=== PATIENT | male | born 1950 | race Caucasian/White ===

== ENCOUNTER 2020-05-03 00:57 | Inpatient (IN) ==
[2020-05-03 01:39] LABS: VBG HCO3 26 mEq/L (21-27); VBG PCO2 47 mmHg (41-51); VBG PH 7.36 pH Units (7.32-7.42); VBG PO2 43 mmHg (25-50)
[2020-05-03 01:45] LABS: Bacteria,Urine Few per hpf (None-Few); Bilirubin,Urine Negative (Negative); Blood,Urine Large (Negative); Clarity,Urine Clear (Clear); Color,Urine Yellow (Yellow); Glucose,Urine (UA) Normal (Normal); Ketones,Urine 20 mg/dL (Negative); Leukocyte Esterase,Urine Negative (Negative); Nitrite,Urine Negative (Negative); PH,Urine 6.5 pH Units (5.0-8.0); Protein,Urine 200 mg/dL (Neg-Trace); RBC,Urine TNTC per hpf (0-3); Specific Gravity,Urine 1.028 (1.010-1.025); Squamous Epithelial Cell,Urine Few per hpf (None-Few); WBC,Urine 0-3 per hpf (0-3)
[2020-05-03 01:45] LABS: Basophils % 0.2 %; Immature Granulocytes % 0.7 % (0-4)
[2020-05-03 01:46] LABS: Mucus,Urine Few per lpf (None-Few)
[2020-05-03 01:46] LABS: INR 2.3; Prothrombin Time 25.6 Seconds (9.4-12.1)
[2020-05-03 01:48] LABS: Hematocrit 42.5 % (37.5-50.1); Hemoglobin 13.4 g/dL (12.9-16.9); Immature Platelets 3.6 % (1.1-6.1); Lymphocytes # 0.7 K/mcL (0.6-4.6); Lymphocytes % 15.9 %; Mean Corpuscular HGB Conc 31.5 g/dL (31.6-35.5); Mean Corpuscular Hemoglobin 28.7 pg (28.0-33.3); Monocytes # 0.3 K/mcL (0.0-1.3); Monocytes % 5.9 %; Neutrophils # 3.3 K/mcL (1.6-8.9); Platelet Count 118 K/mcL (140-400); Red Blood Count 4.67 M/mcL (4.19-5.50); Red Cell Distribution Width 14.8 % (11.5-14.5); Segmented Neutrophils % 77.3 %; White Blood Count 4.2 K/mcL (4.3-11.1)
[2020-05-03 01:49] LABS: Activated Partial Thrombo Time 37.4 Seconds (26.0-36.0)
[2020-05-03 02:13] LABS: Platelet Estimate Slight Decrease (Normal)
[2020-05-03 02:22] LABS: Alanine Aminotransferase 10 Units/L (7-52); Albumin 3.6 g/dL (3.5-5.7); Alkaline Phosphatase 68 Units/L (34-104); Aspartate Amino Transferase 33 Units/L (13-39); BUN/Creatinine Ratio 18 (6-26); Bilirubin,Direct 0.2 mg/dL (0.0-0.2); Bilirubin,Indirect 0.4 mg/dL (0.0-1.0); Bilirubin,Total 0.6 mg/dL (0.3-1.0); Blood Urea Nitrogen 19 mg/dL (8-23); Calcium 8.7 mg/dL (8.6-10.3); Carbon Dioxide 24 mEq/L (23-29); Chloride 104 mEq/L (98-107); Globulin 3.7 g/dL (2.4-3.5); Glucose 118 mg/dL (70-105); Magnesium 1.6 mg/dL (1.6-2.6); Osmolality,Calculated 289 (280-300); Phosphorous 1.6 mg/dL (2.7-4.5); Potassium 4.2 mEq/L (3.5-5.1); Sodium 138 mEq/L (136-145); Total Protein 7.3 g/dL (6.4-8.9); Troponin I 0.41 ng/mL (< 0.04); eGFR For African Americans > 60 (> 60); eGFR For Non-African Americans > 60 (> 60)
[2020-05-03] MEDS ORDERED: Isovue-370 500 ML BOTTLE IVP ONE ×2 (03:13→03:15)
[2020-05-03] MEDS ORDERED: Dexamethasone 4 MG/ML VIAL IVP ONE (05:02)
[2020-05-03] MEDS ORDERED: Naloxone 0.4 MG/ML INJ IVP PRN (05:36)
[2020-05-03] MEDS ORDERED: Ondansetron 4 MG/2 ML VIAL IVP PRN (05:36)
[2020-05-03] MEDS ORDERED: 0.9 % Sodium Chloride 500 ML IVC ONE (06:06)
[2020-05-03] MEDS ORDERED: D5% in Water 1,000 ML IVC PRN (06:19)
[2020-05-03] MEDS ORDERED: Dextrose Gel 15 GM/37.5 ML TUBE PO PRN ×2 (06:19)
[2020-05-03] MEDS ORDERED: *HR* Dextrose 50 % in Water (Vial) 50 ML VIAL IVP PRN (06:19)
[2020-05-03] MEDS ORDERED: *HR* Metoprolol 5 MG/5 ML VIAL IVP PRN (06:52)
[2020-05-03] MEDS: Acetaminophen 325 MG TABLET PO PRN ×2 (06:55→18:03)
[2020-05-03] MEDS ORDERED: *HR* Heparin 5,000 UNIT/ML VIAL IVP PRN ×2 (07:06)
[2020-05-03] MEDS ORDERED: *HR* Heparin 5,000 UNIT/ML VIAL IVP ONE (07:06)
[2020-05-03] MEDS ORDERED: cefTRIAXone 1,000 MG in 0.9 % Sodium Chloride Mini Bag 100 ML IVPB SCH (08:00)
[2020-05-03] MEDS: cefTRIAXone 1,000 MG in Water for inj. (sterile) 10 ML IVP SCH (08:17)
[2020-05-03] MEDS: Dexamethasone 4 MG/ML VIAL IVP SCH (08:18)
[2020-05-03] MEDS: Heparin 25,000UNIT/250ML 1/2NS 25,000 UNIT/250 ML IV.SOLN IVC SCH (08:19)
[2020-05-03 08:29] LABS: Hematocrit 41.2 % (37.5-50.1); Hemoglobin 13.1 g/dL (12.9-16.9); Mean Corpuscular HGB Conc 31.8 g/dL (31.6-35.5); Mean Corpuscular Hemoglobin 28.5 pg (28.0-33.3); Mean Corpuscular Volume 89.6 fL (83.0-100.0); Mean Platelet Volume 10.8 fL (9.4-12.4); Red Blood Count 4.6 M/mcL (4.19-5.50); Red Cell Distribution Width 14.7 % (11.5-14.5); White Blood Count 4.7 K/mcL (4.3-11.1)
[2020-05-03 08:53] LABS: INR 1.9; Prothrombin Time 21.2 Seconds (9.4-12.1)
[2020-05-03 08:59] LABS: Activated Partial Thrombo Time 39.1 Seconds (26.0-36.0)
[2020-05-03] MEDS ORDERED: Perflutren Lipid Microsphere 1.3 ML in 0.9 % Sodium Chloride 8.7 ML IVP PRN (09:20)
[2020-05-03] MEDS: Azithromycin 500 MG in 0.9 % Sodium Chloride 250 ML IVPB SCH (09:30)
[2020-05-03] MEDS: Ipratropium 1 PUFF INHALER IH SCH ×5 (10:19→23:51)
[2020-05-03] MEDS ORDERED: Insulin LISPRO 300 UNITS/3 ML VIAL SUBQ SCH (12:00)
[2020-05-03] MEDS: Insulin LISPRO 300 UNITS/3 ML VIAL SUBQ SCH ×2 (14:08→17:43)
[2020-05-03] MEDS ORDERED: Remdesivir 200 MG in 0.9 % Sodium Chloride 100 ML IVPB ONE (16:00)
[2020-05-03] MEDS ORDERED: Furosemide 40 MG/4 ML VIAL IVP ONE (23:54)
[2020-05-04] MEDS: Heparin 25,000UNIT/250ML 1/2NS 25,000 UNIT/250 ML IV.SOLN IVC SCH ×3 (02:34→22:42)
[2020-05-04] MEDS: *HR* OxyCODONE/APAP 10/325 TABLET PO PRN ×4 (03:31→23:37)
[2020-05-04] MEDS: Ipratropium 1 PUFF INHALER IH SCH ×6 (03:54→23:12)
[2020-05-04 04:03] LABS: Basophils % 0.1 %; Hematocrit 46.1 % (37.5-50.1); Hemoglobin 14.7 g/dL (12.9-16.9); Immature Granulocytes % 0.7 % (0-4); Immature Platelets 5.2 % (1.1-6.1); Lymphocytes # 0.9 K/mcL (0.6-4.6); Lymphocytes % 12.4 %; Mean Corpuscular HGB Conc 31.9 g/dL (31.6-35.5); Mean Corpuscular Hemoglobin 28.8 pg (28.0-33.3); Mean Corpuscular Volume 90.2 fL (83.0-100.0); Mean Platelet Volume 10.6 fL (9.4-12.4); Monocytes # 0.4 K/mcL (0.0-1.3); Monocytes % 5.4 %; Platelet Count 135 K/mcL (140-400); Red Blood Count 5.11 M/mcL (4.19-5.50); Red Cell Distribution Width 14.8 % (11.5-14.5); Segmented Neutrophils % 81.4 %; White Blood Count 7.4 K/mcL (4.3-11.1)
[2020-05-04 04:04] LABS: INR 1.5; Prothrombin Time 17.5 Seconds (9.4-12.1)
[2020-05-04 04:17] LABS: BUN/Creatinine Ratio 18 (6-26); Blood Urea Nitrogen 16 mg/dL (8-23); Carbon Dioxide 28 mEq/L (23-29); Chloride 101 mEq/L (98-107); Potassium 3.4 mEq/L (3.5-5.1); Sodium 140 mEq/L (136-145); eGFR For African Americans > 60 (> 60)
[2020-05-04 04:18] LABS: Alanine Aminotransferase 14 Units/L (7-52); Albumin 3.6 g/dL (3.5-5.7); Albumin/Globulin Ratio 0.9 (1.1-2.2); Alkaline Phosphatase 67 Units/L (34-104); Aspartate Amino Transferase 57 Units/L (13-39); Bilirubin,Total 0.6 mg/dL (0.3-1.0); Calcium 8.9 mg/dL (8.6-10.3); Globulin 3.9 g/dL (2.4-3.5); Glucose 139 mg/dL (70-105); Osmolality,Calculated 293 (280-300); Total Protein 7.5 g/dL (6.4-8.9); eGFR For Non-African Americans > 60 (> 60)
[2020-05-04 04:19] LABS: C-Reactive Protein 273 mg/L (Less than 10)
[2020-05-04 04:41] LABS: Ferritin > 1500 ng/mL (20-250)
[2020-05-04] MEDS: Insulin LISPRO 300 UNITS/3 ML VIAL SUBQ SCH ×4 (05:18→17:54)
[2020-05-04] MEDS: Acetaminophen 325 MG TABLET PO PRN (08:13)
[2020-05-04] MEDS: Dexamethasone 4 MG/ML VIAL IVP SCH (08:14)
[2020-05-04] MEDS: cefTRIAXone 1,000 MG in Water for inj. (sterile) 10 ML IVP SCH (08:15)
[2020-05-04] MEDS: Azithromycin 500 MG in 0.9 % Sodium Chloride 250 ML IVPB SCH (08:15)
[2020-05-04] MEDS ORDERED: Aspirin Enteric Coated 81 MG Tablet PO SCH (09:00)
[2020-05-04] MEDS ORDERED: Dexamethasone Sodium Phos/PF 10 MG/ML VIAL IVP ONE (11:18)
[2020-05-04] MEDS ORDERED: Furosemide 40 MG/4 ML VIAL IVP SCH (11:20)
[2020-05-04] MEDS ORDERED: DilTIAZem 50 MG/50 ML IV.SOLN IVC SCH (13:30)
[2020-05-04] MEDS ORDERED: *HR* Dextrose 50 % in Water (Vial) 50 ML VIAL IVP PRN (13:31)
[2020-05-04] MEDS ORDERED: Acetaminophen 325 MG TABLET PO PRN (13:31)
[2020-05-04] MEDS ORDERED: Heparin 25,000UNIT/250ML 1/2NS 25,000 UNIT/250 ML IV.SOLN IVC SCH (13:31)
[2020-05-04] MEDS ORDERED: *HR* Metoprolol 5 MG/5 ML VIAL IVP PRN (13:31)
[2020-05-04] MEDS ORDERED: *HR* Heparin 5,000 UNIT/ML VIAL IVP PRN ×2 (13:31)
[2020-05-04] MEDS ORDERED: Perflutren Lipid Microsphere 1.3 ML in 0.9 % Sodium Chloride 8.7 ML IVP PRN (13:31)
[2020-05-04] MEDS ORDERED: Ondansetron 4 MG/2 ML VIAL IVP PRN (13:31)
[2020-05-04] MEDS ORDERED: Naloxone 0.4 MG/ML INJ IVP PRN (13:31)
[2020-05-04] MEDS ORDERED: D5% in Water 1,000 ML IVC PRN (13:31)
[2020-05-04] MEDS ORDERED: Dextrose Gel 15 GM/37.5 ML TUBE PO PRN ×2 (13:31)
[2020-05-04 14:20] LABS: VBG Ionized Calcium 1.03 mmol/L (1.15-1.35)
[2020-05-04 14:37] LABS: BUN/Creatinine Ratio 22 (6-26); Blood Urea Nitrogen 23 mg/dL (8-23); Carbon Dioxide 26 mEq/L (23-29); Chloride 103 mEq/L (98-107); Glucose 181 mg/dL (70-105); Magnesium 1.7 mg/dL (1.6-2.6); Osmolality,Calculated 302 (280-300); Phosphorous 3.2 mg/dL (2.7-4.5); Potassium 3.7 mEq/L (3.5-5.1); Sodium 142 mEq/L (136-145); eGFR For African Americans > 60 (> 60); eGFR For Non-African Americans > 60 (> 60)
[2020-05-04] MEDS: DilTIAZem 50 MG/50 ML IV.SOLN IVC SCH ×2 (14:56→22:40)
[2020-05-04] MEDS ORDERED: Metoprolol 100 MG TABLET PO SCH (15:00)
[2020-05-04] MEDS: Metoprolol 100 MG TABLET PO SCH ×2 (15:02→20:02)
[2020-05-04] MEDS ORDERED: Sucralfate 1 GM TABLET PO SCH (16:30)
[2020-05-04] MEDS: Sucralfate 1 GM TABLET PO SCH (17:29)
[2020-05-04] MEDS: Doxycycline 100 MG in 0.9 % Sodium Chloride Mini Bag 100 ML IVPB SCH (17:29)
[2020-05-04] MEDS: Pantoprazole 40 MG VIAL IVP SCH (17:30)
[2020-05-04] MEDS ORDERED: Doxycycline 100 MG in 0.9 % Sodium Chloride Mini Bag 100 ML IVPB SCH (18:00)
[2020-05-04] MEDS ORDERED: Pantoprazole 40 MG VIAL IVP SCH (18:00)
[2020-05-04] MEDS: Furosemide 40 MG/4 ML VIAL IVP SCH (20:02)
[2020-05-04] MEDS: Remdesivir 100 MG in 0.9 % Sodium Chloride 100 ML IVPB SCH (23:27)
[2020-05-05] MEDS ORDERED: Remdesivir 100 MG in 0.9 % Sodium Chloride 100 ML IVPB SCH
[2020-05-05] MEDS: Insulin LISPRO 300 UNITS/3 ML VIAL SUBQ SCH ×4 (01:03→17:46)
[2020-05-05] MEDS: Ipratropium 1 PUFF INHALER IH SCH ×5 (04:19→19:47)
[2020-05-05] MEDS: Heparin 25,000UNIT/250ML 1/2NS 25,000 UNIT/250 ML IV.SOLN IVC SCH ×2 (05:26→20:04)
[2020-05-05] MEDS: Doxycycline 100 MG in 0.9 % Sodium Chloride Mini Bag 100 ML IVPB SCH ×2 (05:42→16:53)
[2020-05-05] MEDS: Pantoprazole 40 MG VIAL IVP SCH ×2 (05:43→16:53)
[2020-05-05] MEDS: Sucralfate 1 GM TABLET PO SCH ×2 (05:43→16:25)
[2020-05-05] MEDS: *HR* OxyCODONE/APAP 10/325 TABLET PO PRN ×3 (05:44→17:46)
[2020-05-05 06:15] LABS: Basophils % 0.2 %; Hematocrit 45.5 % (37.5-50.1); Immature Granulocytes % 0.4 % (0-4); Lymphocytes # 0.6 K/mcL (0.6-4.6); Lymphocytes % 6.8 %; Mean Corpuscular Hemoglobin 29.2 pg (28.0-33.3); Mean Corpuscular Volume 88.7 fL (83.0-100.0); Mean Platelet Volume 11.5 fL (9.4-12.4); Monocytes # 0.5 K/mcL (0.0-1.3); Monocytes % 5.5 %; Neutrophils # 8.2 K/mcL (1.6-8.9); Platelet Count 158 K/mcL (140-400); Red Blood Count 5.13 M/mcL (4.19-5.50); Red Cell Distribution Width 14.6 % (11.5-14.5); Segmented Neutrophils % 87.1 %; White Blood Count 9.4 K/mcL (4.3-11.1)
[2020-05-05 06:16] LABS: INR 1.6; Prothrombin Time 17.9 Seconds (9.4-12.1)
[2020-05-05 06:33] LABS: Alanine Aminotransferase 14 Units/L (7-52); Albumin 3.4 g/dL (3.5-5.7); Albumin/Globulin Ratio 0.9 (1.1-2.2); Alkaline Phosphatase 71 Units/L (34-104); Aspartate Amino Transferase 49 Units/L (13-39); BUN/Creatinine Ratio 35 (6-26); Bilirubin,Total 0.7 mg/dL (0.3-1.0); Blood Urea Nitrogen 31 mg/dL (8-23); Calcium 8.9 mg/dL (8.6-10.3); Carbon Dioxide 30 mEq/L (23-29); Chloride 102 mEq/L (98-107); Glucose 156 mg/dL (70-105); Osmolality,Calculated 302 (280-300); Potassium 3.8 mEq/L (3.5-5.1); Sodium 141 mEq/L (136-145); Total Protein 7.4 g/dL (6.4-8.9); eGFR For African Americans > 60 (> 60); eGFR For Non-African Americans > 60 (> 60)
[2020-05-05] MEDS: Furosemide 40 MG/4 ML VIAL IVP SCH ×2 (08:15→20:05)
[2020-05-05] MEDS: Dexamethasone Sodium Phos/PF 10 MG/ML VIAL IVP SCH (08:15)
[2020-05-05] MEDS: Aspirin Enteric Coated 81 MG Tablet PO SCH (08:16)
[2020-05-05] MEDS: Metoprolol 100 MG TABLET PO SCH ×3 (08:16→20:05)
[2020-05-05] MEDS: cefTRIAXone 1,000 MG in Water for inj. (sterile) 10 ML IVP SCH (08:19)
[2020-05-05] MEDS ORDERED: Dexamethasone Sodium Phos/PF 10 MG/ML VIAL IVP SCH (09:00)
[2020-05-05] MEDS: DilTIAZem 50 MG/50 ML IV.SOLN IVC SCH ×2 (09:34→13:00)
[2020-05-05] MEDS: Remdesivir 100 MG in 0.9 % Sodium Chloride 100 ML IVPB SCH (23:23)
[2020-05-06] MEDS: Insulin LISPRO 300 UNITS/3 ML VIAL SUBQ SCH ×4 (00:28→18:32)
[2020-05-06] MEDS: *HR* OxyCODONE/APAP 10/325 TABLET PO PRN ×4 (01:04→20:25)
[2020-05-06] MEDS: Ipratropium 1 PUFF INHALER IH SCH ×7 (04:33→23:41)
[2020-05-06] MEDS: Doxycycline 100 MG in 0.9 % Sodium Chloride Mini Bag 100 ML IVPB SCH ×2 (06:14→18:35)
[2020-05-06] MEDS: Pantoprazole 40 MG VIAL IVP SCH ×2 (06:15→18:35)
[2020-05-06 07:17] LABS: INR 1.5; Prothrombin Time 16.8 Seconds (9.4-12.1)
[2020-05-06 07:20] LABS: Hematocrit 45.8 % (37.5-50.1); Hemoglobin 15.1 g/dL (12.9-16.9); Mean Corpuscular Hemoglobin 29.4 pg (28.0-33.3); Mean Corpuscular Volume 89.3 fL (83.0-100.0); Monocytes # 0.4 K/mcL (0.0-1.3); Platelet Count 153 K/mcL (140-400); Red Blood Count 5.13 M/mcL (4.19-5.50); Red Cell Distribution Width 14.5 % (11.5-14.5); White Blood Count 8.8 K/mcL (4.3-11.1)
[2020-05-06 07:24] LABS: Neutrophils # 7.6 K/mcL (1.6-8.9)
[2020-05-06] MEDS: cefTRIAXone 1,000 MG in Water for inj. (sterile) 10 ML IVP SCH (07:48)
[2020-05-06] MEDS: Aspirin Enteric Coated 81 MG Tablet PO SCH (07:49)
[2020-05-06] MEDS: Sucralfate 1 GM TABLET PO SCH ×2 (07:49→15:32)
[2020-05-06] MEDS: Metoprolol 100 MG TABLET PO SCH ×3 (07:49→20:25)
[2020-05-06] MEDS: Dexamethasone Sodium Phos/PF 10 MG/ML VIAL IVP SCH (07:49)
[2020-05-06] MEDS: Furosemide 40 MG/4 ML VIAL IVP SCH ×2 (07:49→20:25)
[2020-05-06 08:05] LABS: Lymphocytes # 0.8 K/mcL (0.6-4.6); Reactive Lymphocytes Present (Not Present)
[2020-05-06 08:06] LABS: Platelet Estimate Normal (Normal)
[2020-05-06 08:11] LABS: Alanine Aminotransferase 11 Units/L (7-52); Albumin 3.3 g/dL (3.5-5.7); Albumin/Globulin Ratio 0.9 (1.1-2.2); Alkaline Phosphatase 70 Units/L (34-104); Aspartate Amino Transferase 38 Units/L (13-39); BUN/Creatinine Ratio 46 (6-26); Bilirubin,Total 0.7 mg/dL (0.3-1.0); Blood Urea Nitrogen 39 mg/dL (8-23); Calcium 8.9 mg/dL (8.6-10.3); Carbon Dioxide 29 mEq/L (23-29); Chloride 100 mEq/L (98-107); Globulin 3.8 g/dL (2.4-3.5); Glucose 160 mg/dL (70-105); Osmolality,Calculated 301 (280-300); Potassium 4.1 mEq/L (3.5-5.1); Sodium 139 mEq/L (136-145); Total Protein 7.1 g/dL (6.4-8.9); eGFR For African Americans > 60 (> 60); eGFR For Non-African Americans > 60 (> 60)
[2020-05-06] MEDS: Heparin 25,000UNIT/250ML 1/2NS 25,000 UNIT/250 ML IV.SOLN IVC SCH (16:31)
[2020-05-07] MEDS: Remdesivir 100 MG in 0.9 % Sodium Chloride 100 ML IVPB SCH ×2 (00:20→23:42)
[2020-05-07] MEDS: Insulin LISPRO 300 UNITS/3 ML VIAL SUBQ SCH ×4 (00:24→17:51)
[2020-05-07] MEDS: *HR* OxyCODONE/APAP 10/325 TABLET PO PRN ×3 (01:59→21:07)
[2020-05-07] MEDS: Ipratropium 1 PUFF INHALER IH SCH ×6 (03:33→23:08)
[2020-05-07] MEDS: Pantoprazole 40 MG VIAL IVP SCH ×2 (05:08→17:47)
[2020-05-07] MEDS: Doxycycline 100 MG in 0.9 % Sodium Chloride Mini Bag 100 ML IVPB SCH ×2 (05:09→17:46)
[2020-05-07 05:17] LABS: Basophils % 0.3 %; Eosinophils % 0.2 %; Hematocrit 47.4 % (37.5-50.1); Hemoglobin 15.7 g/dL (12.9-16.9); Immature Granulocytes % 0.6 % (0-4); Lymphocytes # 0.9 K/mcL (0.6-4.6); Lymphocytes % 7.8 %; Mean Corpuscular HGB Conc 33.1 g/dL (31.6-35.5); Mean Corpuscular Hemoglobin 29.5 pg (28.0-33.3); Mean Corpuscular Volume 88.9 fL (83.0-100.0); Mean Platelet Volume 11.5 fL (9.4-12.4); Monocytes # 0.5 K/mcL (0.0-1.3); Monocytes % 4.5 %; Neutrophils # 9.9 K/mcL (1.6-8.9); Platelet Count 205 K/mcL (140-400); Red Blood Count 5.33 M/mcL (4.19-5.50); Red Cell Distribution Width 14.2 % (11.5-14.5); Segmented Neutrophils % 86.6 %; White Blood Count 11.4 K/mcL (4.3-11.1)
[2020-05-07 05:24] LABS: INR 1.5; Prothrombin Time 16.8 Seconds (9.4-12.1)
[2020-05-07 05:27] LABS: Activated Partial Thrombo Time 65.8 Seconds (26.0-36.0)
[2020-05-07 05:35] LABS: Alanine Aminotransferase 11 Units/L (7-52); Albumin 3.2 g/dL (3.5-5.7); Albumin/Globulin Ratio 0.8 (1.1-2.2); Alkaline Phosphatase 73 Units/L (34-104); Aspartate Amino Transferase 25 Units/L (13-39); BUN/Creatinine Ratio 43 (6-26); Bilirubin,Total 0.9 mg/dL (0.3-1.0); Blood Urea Nitrogen 41 mg/dL (8-23); Calcium 8.9 mg/dL (8.6-10.3); Carbon Dioxide 33 mEq/L (23-29); Chloride 98 mEq/L (98-107); Globulin 3.8 g/dL (2.4-3.5); Glucose 179 mg/dL (70-105); Osmolality,Calculated 305 (280-300); Potassium 3.1 mEq/L (3.5-5.1); Sodium 140 mEq/L (136-145); eGFR For African Americans > 60 (> 60); eGFR For Non-African Americans > 60 (> 60)
[2020-05-07] MEDS: Aspirin Enteric Coated 81 MG Tablet PO SCH (08:24)
[2020-05-07] MEDS: Metoprolol 100 MG TABLET PO SCH ×3 (08:24→19:59)
[2020-05-07] MEDS: Heparin 25,000UNIT/250ML 1/2NS 25,000 UNIT/250 ML IV.SOLN IVC SCH ×2 (08:25→14:15)
[2020-05-07] MEDS: Sucralfate 1 GM TABLET PO SCH ×2 (08:25→15:30)
[2020-05-07] MEDS: Furosemide 40 MG/4 ML VIAL IVP SCH ×2 (08:26→19:59)
[2020-05-07] MEDS: cefTRIAXone 1,000 MG in Water for inj. (sterile) 10 ML IVP SCH (08:26)
[2020-05-07] MEDS: Dexamethasone Sodium Phos/PF 10 MG/ML VIAL IVP SCH (08:26)
[2020-05-07] MEDS: Dexmedetomidine HCl 400 MCG/100 ML MLS IVC SCH (10:11)
[2020-05-07] MEDS: Cholecalciferol (D-3) 1,000 UNIT (25MCG) TABLET PO SCH (15:30)
[2020-05-07] MEDS: Zinc Sulfate 220 MG CAPSULE PO SCH (15:30)
[2020-05-07] MEDS: Melatonin 3 MG TABLET PO PRN (20:00)
[2020-05-08] MEDS: Insulin LISPRO 300 UNITS/3 ML VIAL SUBQ SCH ×3 (00:37→13:31)
[2020-05-08] MEDS: Ipratropium 1 PUFF INHALER IH SCH ×5 (04:17→20:28)
[2020-05-08 04:37] LABS: Basophils % 0.3 %; Hematocrit 46.4 % (37.5-50.1); Hemoglobin 15.3 g/dL (12.9-16.9); Immature Granulocytes % 0.8 % (0-4); Lymphocytes # 0.9 K/mcL (0.6-4.6); Lymphocytes % 6.4 %; Mean Corpuscular Hemoglobin 29.3 pg (28.0-33.3); Mean Corpuscular Volume 88.9 fL (83.0-100.0); Mean Platelet Volume 11.8 fL (9.4-12.4); Monocytes # 0.6 K/mcL (0.0-1.3); Monocytes % 4.4 %; Platelet Count 203 K/mcL (140-400); Red Blood Count 5.22 M/mcL (4.19-5.50); Red Cell Distribution Width 14.1 % (11.5-14.5); Segmented Neutrophils % 88.1 %; White Blood Count 14.5 K/mcL (4.3-11.1)
[2020-05-08 04:52] LABS: Neutrophils # 12.8 K/mcL (1.6-8.9)
[2020-05-08 04:53] LABS: INR 1.5; Prothrombin Time 17.1 Seconds (9.4-12.1)
[2020-05-08 04:56] LABS: Alanine Aminotransferase 9 Units/L (7-52); Albumin 3.2 g/dL (3.5-5.7); Albumin/Globulin Ratio 0.9 (1.1-2.2); Alkaline Phosphatase 70 Units/L (34-104); Aspartate Amino Transferase 19 Units/L (13-39); BUN/Creatinine Ratio 43 (6-26); Blood Urea Nitrogen 47 mg/dL (8-23); Calcium 8.8 mg/dL (8.6-10.3); Carbon Dioxide 33 mEq/L (23-29); Chloride 99 mEq/L (98-107); Globulin 3.6 g/dL (2.4-3.5); Glucose 185 mg/dL (70-105); Magnesium 1.9 mg/dL (1.6-2.6); Osmolality,Calculated 311 (280-300); Phosphorous 3.6 mg/dL (2.7-4.5); Potassium 3.4 mEq/L (3.5-5.1); Sodium 142 mEq/L (136-145); Total Protein 6.8 g/dL (6.4-8.9); eGFR For African Americans > 60 (> 60); eGFR For Non-African Americans > 60 (> 60)
[2020-05-08] MEDS: Pantoprazole 40 MG VIAL IVP SCH ×2 (05:02→17:33)
[2020-05-08] MEDS: Doxycycline 100 MG in 0.9 % Sodium Chloride Mini Bag 100 ML IVPB SCH ×2 (05:03→17:34)
[2020-05-08 05:20] LABS: Activated Partial Thrombo Time 60.2 Seconds (26.0-36.0)
[2020-05-08] MEDS: *HR* OxyCODONE/APAP 10/325 TABLET PO PRN ×3 (05:39→17:35)
[2020-05-08 05:40] LABS: Platelet Estimate Normal (Normal)
[2020-05-08] MEDS: cefTRIAXone 1,000 MG in Water for inj. (sterile) 10 ML IVP SCH (09:13)
[2020-05-08] MEDS: Cholecalciferol (D-3) 1,000 UNIT (25MCG) TABLET PO SCH (09:14)
[2020-05-08] MEDS: Sucralfate 1 GM TABLET PO SCH ×2 (09:14→15:54)
[2020-05-08] MEDS: Dexamethasone Sodium Phos/PF 10 MG/ML VIAL IVP SCH (09:14)
[2020-05-08] MEDS: Aspirin Enteric Coated 81 MG Tablet PO SCH (09:15)
[2020-05-08] MEDS: Metoprolol 100 MG TABLET PO SCH ×3 (09:15→19:56)
[2020-05-08] MEDS: Zinc Sulfate 220 MG CAPSULE PO SCH (09:15)
[2020-05-08] MEDS: Furosemide 40 MG/4 ML VIAL IVP SCH ×2 (09:15→19:56)
[2020-05-08] MEDS ORDERED: Lidocaine -MPF 1% 5 ML AMPUL INFILT ONE (10:04)
[2020-05-08] MEDS ORDERED: D10% in Water 500 ML IVC PRN (11:12)
[2020-05-08] MEDS: Dexmedetomidine HCl 400 MCG/100 ML MLS IVC SCH (12:21)
[2020-05-08] MEDS: Heparin 25,000UNIT/250ML 1/2NS 25,000 UNIT/250 ML IV.SOLN IVC SCH (13:32)
[2020-05-08] MEDS ORDERED: Clinimix E 5%-15% SOLUTION 2,000 ML with MVI, adult with vitamin K 10 ML IVC SCH ×2 (17:00)
[2020-05-08] MEDS: DilTIAZem 50 MG/50 ML IV.SOLN IVC SCH (18:26)
[2020-05-08] MEDS: Melatonin 3 MG TABLET PO PRN (19:57)
[2020-05-08] MEDS ORDERED: Melatonin 3 MG TABLET PO PRN (21:00)
[2020-05-09] MEDS: Ipratropium 1 PUFF INHALER IH SCH ×6 (00:01→20:02)
[2020-05-09] MEDS ORDERED: Insulin LISPRO 300 UNITS/3 ML VIAL SUBQ SCH (02:15)
[2020-05-09] MEDS ORDERED: Haloperidol Lactate 5 MG/ML VIAL IVP ONE (03:01)
[2020-05-09 04:07] LABS: Basophils % 0.2 %; Hematocrit 48.7 % (37.5-50.1); Hemoglobin 16.3 g/dL (12.9-16.9); Immature Granulocytes % 1.2 % (0-4); Lymphocytes # 0.6 K/mcL (0.6-4.6); Lymphocytes % 4.1 %; Mean Corpuscular HGB Conc 33.5 g/dL (31.6-35.5); Mean Corpuscular Hemoglobin 29.5 pg (28.0-33.3); Mean Corpuscular Volume 88.2 fL (83.0-100.0); Mean Platelet Volume 11.8 fL (9.4-12.4); Monocytes # 0.4 K/mcL (0.0-1.3); Monocytes % 2.9 %; Neutrophils # 13.1 K/mcL (1.6-8.9); Platelet Count 259 K/mcL (140-400); Red Blood Count 5.52 M/mcL (4.19-5.50); Segmented Neutrophils % 91.6 %; White Blood Count 14.4 K/mcL (4.3-11.1)
[2020-05-09 04:21] LABS: BUN/Creatinine Ratio 43 (6-26); Blood Urea Nitrogen 47 mg/dL (8-23); Calcium 8.9 mg/dL (8.6-10.3); Carbon Dioxide 32 mEq/L (23-29); Chloride 96 mEq/L (98-107); Glucose 311 mg/dL (70-105); Magnesium 2.1 mg/dL (1.6-2.6); Osmolality,Calculated 312 (280-300); Phosphorous 2.8 mg/dL (2.7-4.5); Potassium 2.9 mEq/L (3.5-5.1); Sodium 139 mEq/L (136-145); Triglycerides 288 mg/dL (< 150); eGFR For African Americans > 60 (> 60); eGFR For Non-African Americans > 60 (> 60)
[2020-05-09] MEDS ORDERED: Potassium Chloride Elixir 20 MEQ/15 ML UDC PO ONE (04:41)
[2020-05-09] MEDS: Insulin LISPRO 300 UNITS/3 ML VIAL SUBQ SCH ×6 (04:45→23:23)
[2020-05-09] MEDS: Doxycycline 100 MG in 0.9 % Sodium Chloride Mini Bag 100 ML IVPB SCH ×2 (04:49→17:44)
[2020-05-09] MEDS: Pantoprazole 40 MG VIAL IVP SCH ×2 (04:50→17:43)
[2020-05-09] MEDS: *HR* OxyCODONE/APAP 10/325 TABLET PO PRN (05:27)
[2020-05-09] MEDS: Heparin 25,000UNIT/250ML 1/2NS 25,000 UNIT/250 ML IV.SOLN IVC SCH ×2 (05:30→20:01)
[2020-05-09] MEDS: Cholecalciferol (D-3) 1,000 UNIT (25MCG) TABLET PO SCH (08:46)
[2020-05-09] MEDS: cefTRIAXone 1,000 MG in Water for inj. (sterile) 10 ML IVP SCH (08:46)
[2020-05-09] MEDS: Aspirin Enteric Coated 81 MG Tablet PO SCH (08:46)
[2020-05-09] MEDS: Sucralfate 1 GM TABLET PO SCH (08:46)
[2020-05-09] MEDS: Dexamethasone Sodium Phos/PF 10 MG/ML VIAL IVP SCH (08:47)
[2020-05-09] MEDS: Zinc Sulfate 220 MG CAPSULE PO SCH (08:47)
[2020-05-09] MEDS: Metoprolol 100 MG TABLET PO SCH ×2 (08:47→15:21)
[2020-05-09] MEDS: Furosemide 40 MG/4 ML VIAL IVP SCH ×2 (08:47→20:11)
[2020-05-09 11:12] LABS: BUN/Creatinine Ratio 44 (6-26); Blood Urea Nitrogen 44 mg/dL (8-23); Calcium 9.2 mg/dL (8.6-10.3); Carbon Dioxide 31 mEq/L (23-29); Chloride 98 mEq/L (98-107); Glucose 256 mg/dL (70-105); Osmolality,Calculated 308 (280-300); Potassium 3.6 mEq/L (3.5-5.1); Sodium 139 mEq/L (136-145); eGFR For African Americans > 60 (> 60); eGFR For Non-African Americans > 60 (> 60)
[2020-05-09] MEDS ORDERED: 0.9 % Sodium Chloride 500 ML ONE (11:27)
[2020-05-09] MEDS ORDERED: *HR* Propofol 200 MG/20 ML VIAL IVP ONE (11:52)
[2020-05-09] MEDS ORDERED: *HR* Rocuronium Bromide 50 MG/5 ML VIAL ONE (11:52)
[2020-05-09] MEDS: FentaNYL (PF) 1,000 MCG/100 ML IV.SOLN IVC SCH ×2 (12:00→20:01)
[2020-05-09] MEDS ORDERED: *HR* Rocuronium Bromide 50 MG/5 ML VIAL IVP ONE (12:14)
[2020-05-09] MEDS ORDERED: *HR* Midazolam HCl 5 MG/5 ML VIAL IVP ONE (12:14)
[2020-05-09] MEDS ORDERED: *HR* Succinylcholine 200 MG/10 ML VIAL IVP ONE (12:14)
[2020-05-09] MEDS: Cisatracurium 200 MG in 0.9 % Sodium Chloride 180 ML IVC SCH ×2 (12:22→21:52)
[2020-05-09 12:36] LABS: ABG Base Excess 3 mEq/L (-2 to 3); ABG HCO3 35 mEq/L (21-27); ABG Oxygen Saturation 89 % (95-98); ABG PCO2 83 mmHg (35-45); ABG PH 7.23 pH Units (7.32-7.45); ABG PO2 70 mmHg (85-104); ABG TCO2 37 mEq/L (20-26); Blood Gas Modality ASSIST CONTROL; Blood Gas VT 450 cc
[2020-05-09] MEDS: DilTIAZem 50 MG/50 ML IV.SOLN IVC SCH (13:04)
[2020-05-09] MEDS ORDERED: Clinimix E 5%-20% SOLUTION 2,000 ML IVC ONE ×2 (17:00)
[2020-05-09] MEDS: *HR* Metoprolol 5 MG/5 ML VIAL IVP SCH (20:41)
[2020-05-09 22:36] LABS: ABG Base Excess 2 mEq/L (-2 to 3); ABG HCO3 33 mEq/L (21-27); ABG Oxygen Saturation 92 % (95-98); ABG PCO2 83 mmHg (35-45); ABG PH 7.21 pH Units (7.32-7.45); ABG PO2 81 mmHg (85-104); ABG TCO2 36 mEq/L (20-26); Blood Gas Modality ASSIST CONTROL; Blood Gas VT 450 cc
[2020-05-10] MEDS: Ipratropium 1 PUFF INHALER IH SCH ×6 (00:11→20:15)
[2020-05-10] MEDS: *HR* Metoprolol 5 MG/5 ML VIAL IVP SCH ×4 (00:20→17:48)
[2020-05-10] MEDS: Heparin 25,000UNIT/250ML 1/2NS 25,000 UNIT/250 ML IV.SOLN IVC SCH ×3 (00:20→23:11)
[2020-05-10] MEDS: Insulin LISPRO 300 UNITS/3 ML VIAL SUBQ SCH ×5 (03:49→19:43)
[2020-05-10 04:09] LABS: Basophils # 0.1 K/mcL (0.0-0.2); Basophils % 0.4 %; Hematocrit 47.1 % (37.5-50.1); Immature Granulocytes % 2.4 % (0-4); Lymphocytes # 0.5 K/mcL (0.6-4.6); Lymphocytes % 3.5 %; Mean Corpuscular HGB Conc 30.8 g/dL (31.6-35.5); Mean Corpuscular Hemoglobin 28.7 pg (28.0-33.3); Mean Corpuscular Volume 93.3 fL (83.0-100.0); Mean Platelet Volume 11.9 fL (9.4-12.4); Monocytes # 0.6 K/mcL (0.0-1.3); Monocytes % 4.2 %; Neutrophils # 12.7 K/mcL (1.6-8.9); Nucleated Red Blood Cells 0.1 /100 WBC (0); Platelet Count 212 K/mcL (140-400); Red Blood Count 5.05 M/mcL (4.19-5.50); Red Cell Distribution Width 14.6 % (11.5-14.5); Segmented Neutrophils % 89.5 %; White Blood Count 14.1 K/mcL (4.3-11.1)
[2020-05-10 04:11] LABS: Hemoglobin 14.5 g/dL (12.9-16.9)
[2020-05-10 04:21] LABS: BUN/Creatinine Ratio 45 (6-26); Blood Urea Nitrogen 61 mg/dL (8-23); Calcium 8.6 mg/dL (8.6-10.3); Carbon Dioxide 29 mEq/L (23-29); Chloride 101 mEq/L (98-107); Glucose 270 mg/dL (70-105); Magnesium 2.3 mg/dL (1.6-2.6); Osmolality,Calculated 317 (280-300); Phosphorous 6.3 mg/dL (2.7-4.5); Potassium 4.2 mEq/L (3.5-5.1); Sodium 140 mEq/L (136-145); eGFR For African Americans > 60 (> 60); eGFR For Non-African Americans 51 (> 60)
[2020-05-10 04:31] LABS: ABG Base Excess 4 mEq/L (-2 to 3); ABG HCO3 35 mEq/L (21-27); ABG Oxygen Saturation 95 % (95-98); ABG PCO2 85 mmHg (35-45); ABG PH 7.23 pH Units (7.32-7.45); ABG PO2 92 mmHg (85-104); ABG TCO2 38 mEq/L (20-26); Blood Gas Modality ASSIST CONTROL; Blood Gas VT 400 cc
[2020-05-10] MEDS: Doxycycline 100 MG in 0.9 % Sodium Chloride Mini Bag 100 ML IVPB SCH ×2 (05:39→17:45)
[2020-05-10] MEDS: Pantoprazole 40 MG VIAL IVP SCH (05:40)
[2020-05-10] MEDS: FentaNYL (PF) 1,000 MCG/100 ML IV.SOLN IVC SCH ×2 (06:07→17:05)
[2020-05-10] MEDS: Furosemide 40 MG/4 ML VIAL IVP SCH (08:26)
[2020-05-10] MEDS: Dexamethasone Sodium Phos/PF 10 MG/ML VIAL IVP SCH (08:26)
[2020-05-10] MEDS: cefTRIAXone 1,000 MG in Water for inj. (sterile) 10 ML IVP SCH (08:27)
[2020-05-10] MEDS: Cholecalciferol (D-3) 1,000 UNIT (25MCG) TABLET PO SCH (08:27)
[2020-05-10] MEDS: Zinc Sulfate 220 MG CAPSULE PO SCH (08:27)
[2020-05-10] MEDS: Cisatracurium 200 MG in 0.9 % Sodium Chloride 180 ML IVC SCH ×2 (09:02→19:04)
[2020-05-10] MEDS ORDERED: Artificial Tears SOLN 15 ML BOTTLE BOTH EYES PRN (11:02)
[2020-05-10] MEDS: Artificial Tears SOLN 15 ML BOTTLE BOTH EYES SCH ×5 (12:55→23:10)
[2020-05-10] MEDS: Chlorhexidine Rinse 15 ML MOUTHWASH MM SCH ×2 (12:55→19:23)
[2020-05-10] MEDS: DilTIAZem 50 MG/50 ML IV.SOLN IVC SCH (12:56)
[2020-05-10] MEDS: Norepinephrine 4 MG/254 ML IV.SOLN IVC SCH (15:44)
[2020-05-10] MEDS ORDERED: Clinimix 5%-20% SOLUTION 2,000 ML with MVI, adult with vitamin K 10 ML, Sodium Acetat... IVC SCH (17:00)
[2020-05-10] MEDS: Docusate Oral Soln 100 MG/10 ML UDC GTUBE SCH (19:23)
[2020-05-10 20:23] LABS: Basophils % 0.3 %; Hematocrit 46.3 % (37.5-50.1); Hemoglobin 14.2 g/dL (12.9-16.9); Lymphocytes # 0.3 K/mcL (0.6-4.6); Mean Corpuscular HGB Conc 30.7 g/dL (31.6-35.5); Mean Corpuscular Hemoglobin 28.9 pg (28.0-33.3); Mean Corpuscular Volume 94.3 fL (83.0-100.0); Mean Platelet Volume 11.7 fL (9.4-12.4); Monocytes # 0.7 K/mcL (0.0-1.3); Monocytes % 4.3 %; Neutrophils # 13.5 K/mcL (1.6-8.9); Nucleated Red Blood Cells 0.3 /100 WBC (0); Platelet Count 203 K/mcL (140-400); Red Blood Count 4.91 M/mcL (4.19-5.50); Red Cell Distribution Width 14.6 % (11.5-14.5); Segmented Neutrophils % 88.4 %; White Blood Count 15.3 K/mcL (4.3-11.1)
[2020-05-10 20:53] LABS: ABG Base Excess 4 mEq/L (-2 to 3); ABG HCO3 35 mEq/L (21-27); ABG Oxygen Saturation 92 % (95-98); ABG PCO2 86 mmHg (35-45); ABG PH 7.22 pH Units (7.32-7.45); ABG PO2 79 mmHg (85-104); ABG TCO2 38 mEq/L (20-26); Blood Gas Modality ASSIST CONTROL; Blood Gas VT 480 cc
[2020-05-11] MEDS: Insulin LISPRO 300 UNITS/3 ML VIAL SUBQ SCH ×7 (00:03→23:45)
[2020-05-11] MEDS: *HR* Metoprolol 5 MG/5 ML VIAL IVP SCH ×6 (00:03→23:55)
[2020-05-11] MEDS: Ipratropium 1 PUFF INHALER IH SCH ×7 (00:10→22:57)
[2020-05-11] MEDS: FentaNYL (PF) 1,000 MCG/100 ML IV.SOLN IVC SCH (01:03)
[2020-05-11] MEDS: Artificial Tears SOLN 15 ML BOTTLE BOTH EYES SCH ×6 (02:39→23:46)
[2020-05-11 03:17] LABS: Basophils % 0.3 %; Hematocrit 44.3 % (37.5-50.1); Hemoglobin 13.4 g/dL (12.9-16.9); Immature Granulocytes % 3.8 % (0-4); Lymphocytes # 0.3 K/mcL (0.6-4.6); Lymphocytes % 2.3 %; Mean Corpuscular HGB Conc 30.2 g/dL (31.6-35.5); Mean Corpuscular Hemoglobin 28.8 pg (28.0-33.3); Mean Corpuscular Volume 95.1 fL (83.0-100.0); Mean Platelet Volume 11.8 fL (9.4-12.4); Monocytes # 0.6 K/mcL (0.0-1.3); Monocytes % 4.9 %; Neutrophils # 11.5 K/mcL (1.6-8.9); Nucleated Red Blood Cells 0.4 /100 WBC (0); Platelet Count 189 K/mcL (140-400); Red Blood Count 4.66 M/mcL (4.19-5.50); Red Cell Distribution Width 14.5 % (11.5-14.5); Segmented Neutrophils % 88.7 %
[2020-05-11 04:24] LABS: BUN/Creatinine Ratio 47 (6-26); Blood Urea Nitrogen 59 mg/dL (8-23); Calcium 8.4 mg/dL (8.6-10.3); Carbon Dioxide 32 mEq/L (23-29); Chloride 103 mEq/L (98-107); Glucose 279 mg/dL (70-105); Magnesium 2.3 mg/dL (1.6-2.6); Osmolality,Calculated 319 (280-300); Phosphorous 3.8 mg/dL (2.7-4.5); Potassium 4.6 mEq/L (3.5-5.1); Sodium 141 mEq/L (136-145); eGFR For African Americans > 60 (> 60); eGFR For Non-African Americans 57 (> 60)
[2020-05-11] MEDS: Cisatracurium 200 MG in 0.9 % Sodium Chloride 180 ML IVC SCH ×2 (04:43→16:30)
[2020-05-11 04:44] LABS: ABG Base Excess 7 mEq/L (-2 to 3); ABG HCO3 39 mEq/L (21-27); ABG Oxygen Saturation 91 % (95-98); ABG PCO2 96 mmHg (35-45); ABG PH 7.22 pH Units (7.32-7.45); ABG PO2 78 mmHg (85-104); ABG TCO2 42 mEq/L (20-26); Blood Gas Modality ASSIST CONTROL; Blood Gas VT 450 cc
[2020-05-11] MEDS: Doxycycline 100 MG in 0.9 % Sodium Chloride Mini Bag 100 ML IVPB SCH ×2 (05:08→18:45)
[2020-05-11] MEDS: FentaNYL (PF) 2,500 MCG/50 ML IV.SOLN IVC SCH ×2 (05:32→16:39)
[2020-05-11] MEDS: Pantoprazole 40 MG VIAL IVP SCH (07:29)
[2020-05-11] MEDS: Dexamethasone Sodium Phos/PF 10 MG/ML VIAL IVP SCH (07:31)
[2020-05-11] MEDS: Chlorhexidine Rinse 15 ML MOUTHWASH MM SCH ×2 (07:31→20:08)
[2020-05-11] MEDS: cefTRIAXone 1,000 MG in Water for inj. (sterile) 10 ML IVP SCH (07:32)
[2020-05-11] MEDS: Cholecalciferol (D-3) 1,000 UNIT (25MCG) TABLET PO SCH (07:41)
[2020-05-11] MEDS: Aspirin 81 MG TAB.CHEW GTUBE SCH (07:42)
[2020-05-11] MEDS: Zinc Sulfate 220 MG CAPSULE PO SCH (07:42)
[2020-05-11] MEDS: Norepinephrine 4 MG/254 ML IV.SOLN IVC SCH (12:16)
[2020-05-11] MEDS: Docusate Oral Soln 100 MG/10 ML UDC GTUBE SCH ×2 (14:28→20:08)
[2020-05-11] MEDS: DilTIAZem 50 MG/50 ML IV.SOLN IVC SCH (14:29)
[2020-05-11] MEDS: Heparin 25,000UNIT/250ML 1/2NS 25,000 UNIT/250 ML IV.SOLN IVC SCH (19:22)
[2020-05-12] MEDS: Cisatracurium 200 MG in 0.9 % Sodium Chloride 180 ML IVC SCH ×3 (00:37→21:30)
[2020-05-12] MEDS: Artificial Tears SOLN 15 ML BOTTLE BOTH EYES SCH ×6 (03:25→23:18)
[2020-05-12] MEDS: Insulin LISPRO 300 UNITS/3 ML VIAL SUBQ SCH ×6 (03:41→23:30)
[2020-05-12 03:51] LABS: Basophils % 0.2 %; Hematocrit 42.1 % (37.5-50.1); Hemoglobin 12.9 g/dL (12.9-16.9); Immature Granulocytes % 4.8 % (0-4); Lymphocytes # 0.4 K/mcL (0.6-4.6); Lymphocytes % 2.2 %; Mean Corpuscular HGB Conc 30.6 g/dL (31.6-35.5); Mean Corpuscular Hemoglobin 28.9 pg (28.0-33.3); Mean Corpuscular Volume 94.4 fL (83.0-100.0); Mean Platelet Volume 11.7 fL (9.4-12.4); Nucleated Red Blood Cells 0.4 /100 WBC (0); Platelet Count 193 K/mcL (140-400); Red Blood Count 4.46 M/mcL (4.19-5.50); Red Cell Distribution Width 14.8 % (11.5-14.5); Segmented Neutrophils % 86.8 %; White Blood Count 16.1 K/mcL (4.3-11.1)
[2020-05-12] MEDS: Ipratropium 1 PUFF INHALER IH SCH ×6 (03:55→23:13)
[2020-05-12 04:10] LABS: BUN/Creatinine Ratio 45 (6-26); Blood Urea Nitrogen 54 mg/dL (8-23); Calcium 8.7 mg/dL (8.6-10.3); Carbon Dioxide 34 mEq/L (23-29); Chloride 106 mEq/L (98-107); Glucose 182 mg/dL (70-105); Magnesium 2.5 mg/dL (1.6-2.6); Osmolality,Calculated 317 (280-300); Phosphorous 3.1 mg/dL (2.7-4.5); Potassium 4.9 mEq/L (3.5-5.1); Sodium 144 mEq/L (136-145); eGFR For African Americans > 60 (> 60); eGFR For Non-African Americans > 60 (> 60)
[2020-05-12 04:12] LABS: ABG Base Excess 7 mEq/L (-2 to 3); ABG HCO3 37 mEq/L (21-27); ABG Oxygen Saturation 85 % (95-98); ABG PCO2 79 mmHg (35-45); ABG PH 7.27 pH Units (7.32-7.45); ABG PO2 59 mmHg (85-104); ABG TCO2 39 mEq/L (20-26); Blood Gas VT 400 cc
[2020-05-12] MEDS: FentaNYL (PF) 2,500 MCG/50 ML IV.SOLN IVC SCH ×2 (04:25→17:30)
[2020-05-12] MEDS: Doxycycline 100 MG in 0.9 % Sodium Chloride Mini Bag 100 ML IVPB SCH ×2 (05:19→17:16)
[2020-05-12] MEDS: *HR* Metoprolol 5 MG/5 ML VIAL IVP SCH ×4 (05:19→23:18)
[2020-05-12] MEDS: Norepinephrine 4 MG/254 ML IV.SOLN IVC SCH (05:21)
[2020-05-12] MEDS: Pantoprazole 40 MG VIAL IVP SCH (07:34)
[2020-05-12] MEDS: cefTRIAXone 1,000 MG in Water for inj. (sterile) 10 ML IVP SCH (07:34)
[2020-05-12] MEDS: Aspirin 81 MG TAB.CHEW GTUBE SCH (07:35)
[2020-05-12] MEDS: Dexamethasone Sodium Phos/PF 10 MG/ML VIAL IVP SCH (07:35)
[2020-05-12] MEDS: Cholecalciferol (D-3) 1,000 UNIT (25MCG) TABLET PO SCH (07:35)
[2020-05-12] MEDS: Docusate Oral Soln 100 MG/10 ML UDC GTUBE SCH ×2 (07:35→21:28)
[2020-05-12] MEDS: Zinc Sulfate 220 MG CAPSULE PO SCH (07:35)
[2020-05-12] MEDS: Chlorhexidine Rinse 15 ML MOUTHWASH MM SCH ×2 (07:35→21:28)
[2020-05-12] MEDS: Heparin 25,000UNIT/250ML 1/2NS 25,000 UNIT/250 ML IV.SOLN IVC SCH ×2 (08:06→21:25)
[2020-05-12] MEDS: Furosemide 40 MG/4 ML VIAL IVP SCH ×3 (09:11→21:28)
[2020-05-12] MEDS: DilTIAZem 50 MG/50 ML IV.SOLN IVC SCH (11:16)
[2020-05-12 16:54] LABS: BUN/Creatinine Ratio 41 (6-26); Blood Urea Nitrogen 56 mg/dL (8-23); Calcium 8.8 mg/dL (8.6-10.3); Carbon Dioxide 35 mEq/L (23-29); Chloride 105 mEq/L (98-107); Glucose 247 mg/dL (70-105); Osmolality,Calculated 324 (280-300); Potassium 4.9 mEq/L (3.5-5.1); Sodium 145 mEq/L (136-145); eGFR For African Americans > 60 (> 60); eGFR For Non-African Americans 52 (> 60)
[2020-05-13] MEDS: Ipratropium 1 PUFF INHALER IH SCH ×6 (03:13→23:10)
[2020-05-13] MEDS: Artificial Tears SOLN 15 ML BOTTLE BOTH EYES SCH ×7 (04:00→23:14)
[2020-05-13 04:17] LABS: ABG Base Excess 9 mEq/L (-2 to 3); ABG HCO3 37 mEq/L (21-27); ABG Oxygen Saturation 95 % (95-98); ABG PCO2 71 mmHg (35-45); ABG PH 7.33 pH Units (7.32-7.45); ABG PO2 86 mmHg (85-104); ABG TCO2 40 mEq/L (20-26); Blood Gas Modality AF; Blood Gas VT 450 cc
[2020-05-13] MEDS: *HR* Metoprolol 5 MG/5 ML VIAL IVP SCH ×4 (05:42→23:14)
[2020-05-13] MEDS: Doxycycline 100 MG in 0.9 % Sodium Chloride Mini Bag 100 ML IVPB SCH ×2 (05:51→17:18)
[2020-05-13] MEDS: Insulin LISPRO 300 UNITS/3 ML VIAL SUBQ SCH ×6 (05:52→23:44)
[2020-05-13 05:53] LABS: Basophils % 0.2 %; Hematocrit 40.5 % (37.5-50.1); Hemoglobin 12.2 g/dL (12.9-16.9); Immature Granulocytes % 2.5 % (0-4); Lymphocytes # 0.4 K/mcL (0.6-4.6); Mean Corpuscular HGB Conc 30.1 g/dL (31.6-35.5); Mean Corpuscular Hemoglobin 29.7 pg (28.0-33.3); Mean Corpuscular Volume 98.5 fL (83.0-100.0); Mean Platelet Volume 12.7 fL (9.4-12.4); Monocytes # 1.1 K/mcL (0.0-1.3); Monocytes % 8.2 %; Neutrophils # 11.4 K/mcL (1.6-8.9); Platelet Count 149 K/mcL (140-400); Red Blood Count 4.11 M/mcL (4.19-5.50); Segmented Neutrophils % 86.1 %; White Blood Count 13.2 K/mcL (4.3-11.1)
[2020-05-13] MEDS: FentaNYL (PF) 2,500 MCG/50 ML IV.SOLN IVC SCH ×2 (05:54→18:37)
[2020-05-13 06:23] LABS: Calcium 8.9 mg/dL (8.6-10.3); Magnesium 2.6 mg/dL (1.6-2.6); Phosphorous 3.5 mg/dL (2.7-4.5); Potassium 4.5 mEq/L (3.5-5.1)
[2020-05-13] MEDS: Cholecalciferol (D-3) 1,000 UNIT (25MCG) TABLET PO SCH (08:02)
[2020-05-13] MEDS: Chlorhexidine Rinse 15 ML MOUTHWASH MM SCH ×2 (08:02→19:22)
[2020-05-13] MEDS: Docusate Oral Soln 100 MG/10 ML UDC GTUBE SCH ×2 (08:02→19:22)
[2020-05-13] MEDS: Aspirin 81 MG TAB.CHEW GTUBE SCH (08:03)
[2020-05-13] MEDS: cefTRIAXone 1,000 MG in Water for inj. (sterile) 10 ML IVP SCH (08:03)
[2020-05-13] MEDS: Pantoprazole 40 MG VIAL IVP SCH (08:03)
[2020-05-13] MEDS: Zinc Sulfate 220 MG CAPSULE PO SCH (08:03)
[2020-05-13] MEDS: Furosemide 40 MG/4 ML VIAL IVP SCH ×3 (08:03→19:22)
[2020-05-13] MEDS: Dexamethasone Sodium Phos/PF 10 MG/ML VIAL IVP SCH (08:03)
[2020-05-13] MEDS: Cisatracurium 200 MG in 0.9 % Sodium Chloride 180 ML IVC SCH ×2 (08:34→19:22)
[2020-05-13] MEDS ORDERED: *HR* Metoprolol 5 MG/5 ML VIAL IVP ONE (08:41)
[2020-05-13] MEDS: Norepinephrine 4 MG/254 ML IV.SOLN IVC SCH (11:23)
[2020-05-13] MEDS: DilTIAZem 50 MG/50 ML IV.SOLN IVC SCH (12:52)
[2020-05-13] MEDS: Heparin 25,000UNIT/250ML 1/2NS 25,000 UNIT/250 ML IV.SOLN IVC SCH ×2 (12:53→14:05)
[2020-05-13] MEDS: Neosporin OINT 15 GM TUBE TP SCH ×2 (13:41→19:54)
[2020-05-14] MEDS ORDERED: *HR* Metoprolol 5 MG/5 ML VIAL IVP ONE (02:35)
[2020-05-14] MEDS: Ipratropium 1 PUFF INHALER IH SCH ×3 (03:17→11:21)
[2020-05-14] MEDS: Artificial Tears SOLN 15 ML BOTTLE BOTH EYES SCH ×3 (03:27→11:39)
[2020-05-14] MEDS ORDERED: 0.9 % Sodium Chloride 500 ML ONE (03:53)
[2020-05-14 04:07] LABS: Basophils % 0.2 %; Hematocrit 39.3 % (37.5-50.1); Hemoglobin 11.7 g/dL (12.9-16.9); Immature Granulocytes % 2.9 % (0-4); Lymphocytes # 0.5 K/mcL (0.6-4.6); Lymphocytes % 2.8 %; Mean Corpuscular HGB Conc 29.8 g/dL (31.6-35.5); Mean Corpuscular Hemoglobin 29.5 pg (28.0-33.3); Mean Corpuscular Volume 99.2 fL (83.0-100.0); Mean Platelet Volume 12.1 fL (9.4-12.4); Monocytes # 1.6 K/mcL (0.0-1.3); Monocytes % 9.4 %; Neutrophils # 13.9 K/mcL (1.6-8.9); Nucleated Red Blood Cells 0.3 /100 WBC (0); Platelet Count 157 K/mcL (140-400); Red Blood Count 3.96 M/mcL (4.19-5.50); Segmented Neutrophils % 84.7 %; White Blood Count 16.4 K/mcL (4.3-11.1)
[2020-05-14] MEDS: Insulin LISPRO 300 UNITS/3 ML VIAL SUBQ SCH ×3 (04:12→11:47)
[2020-05-14 04:28] LABS: Calcium 8.7 mg/dL (8.6-10.3); Magnesium 2.6 mg/dL (1.6-2.6); Phosphorous 4.2 mg/dL (2.7-4.5); Potassium 4.1 mEq/L (3.5-5.1)
[2020-05-14] MEDS: Cisatracurium 200 MG in 0.9 % Sodium Chloride 180 ML IVC SCH (04:51)
[2020-05-14] MEDS: Doxycycline 100 MG in 0.9 % Sodium Chloride Mini Bag 100 ML IVPB SCH (05:43)
[2020-05-14] MEDS: *HR* Metoprolol 5 MG/5 ML VIAL IVP SCH ×2 (05:43→11:39)
[2020-05-14] MEDS: Heparin 25,000UNIT/250ML 1/2NS 25,000 UNIT/250 ML IV.SOLN IVC SCH (06:07)
[2020-05-14 07:33] LABS: ABG Base Excess 13 mEq/L (-2 to 3); ABG HCO3 45 mEq/L (21-27); ABG Oxygen Saturation 82 % (95-98); ABG PCO2 108 mmHg (35-45); ABG PH 7.23 pH Units (7.32-7.45); ABG PO2 60 mmHg (85-104); ABG TCO2 48 mEq/L (20-26); Blood Gas Modality ASSIST CONTROL; Blood Gas VT 450 cc
[2020-05-14] MEDS: Cholecalciferol (D-3) 1,000 UNIT (25MCG) TABLET PO SCH (08:31)
[2020-05-14] MEDS: Zinc Sulfate 220 MG CAPSULE PO SCH (08:31)
[2020-05-14] MEDS: Pantoprazole 40 MG VIAL IVP SCH (08:31)
[2020-05-14] MEDS: Aspirin 81 MG TAB.CHEW GTUBE SCH (08:31)
[2020-05-14] MEDS: Furosemide 40 MG/4 ML VIAL IVP SCH (08:31)
[2020-05-14] MEDS: cefTRIAXone 1,000 MG in Water for inj. (sterile) 10 ML IVP SCH (08:31)
[2020-05-14] MEDS: Docusate Oral Soln 100 MG/10 ML UDC GTUBE SCH (08:32)
[2020-05-14] MEDS: Neosporin OINT 15 GM TUBE TP SCH (08:32)
[2020-05-14] MEDS: Chlorhexidine Rinse 15 ML MOUTHWASH MM SCH (08:32)
[2020-05-14] MEDS: FentaNYL (PF) 2,500 MCG/50 ML IV.SOLN IVC SCH (08:35)
[2020-05-14] MEDS ORDERED: Amiodarone Premix 150 MG/100 ML BAG IVPB ONE ×2 (09:45→10:10)
[2020-05-14] MEDS ORDERED: Amiodarone Premix 360 MG/200 ML BAG IVC ONE ×2 (10:00→10:40)
[2020-05-14] MEDS: DilTIAZem 50 MG/50 ML IV.SOLN IVC SCH (11:39)
[2020-05-14] MEDS ORDERED: Phenylephrine 10 MG in 0.9 % Sodium Chloride 250 ML IVC SCH (12:15)
[2020-05-14] MEDS: Norepinephrine 4 MG/254 ML IV.SOLN IVC SCH (13:10)
[2020-05-14] MEDS ORDERED: *HR* LORazepam 2 MG/ML VIAL IVP PRN (13:18)
[2020-05-14 13:28] VITALS: BP 55/40
[2020-05-14] MEDS ORDERED: Amiodarone Premix 360 MG/200 ML BAG IVC SCH (16:11)
== END 2020-05-14 14:07 | disposition expired | DRG 720 ==
LOC: 2NENU 00:57 → EMEROOARM 00:57 → OBSVTOIN 05:34 → SUATTDRO 05:34 → 2NENU 06:07 → ICNU 05-04 13:46
PROVIDERS: ADMIT Internal Medicine; ATTEND Family Medicine